=== PATIENT | male | born 1955 | race Caucasian/White ===

== ENCOUNTER 2022-01-22 20:18 | Emergency (ER) | payer MEDICAID, SELFPAY ==
[2022-01-22 20:23] VITALS: BP 157/74; PULSE 95; RESP 20; TEMP 35.8; O2SAT 99; BMI 24.4
--- NOTE | 2022-01-22 21:02 | ED.NAVMDI ---
HPI - Nausea/Vomiting/Diarrhea General Chief complaint: Nausea/Vomiting Stated complaint: Vomiting Time Seen by Provider: 01/22/22 20:44 Source: patient, family and RN notes reviewed Mode of arrival: ambulatory Limitations: no limitations History of Present Illness HPI Narrative: 66-year-old man presenting with his brother with complaint of vomiting for the most part of the last 3 days. Says he can not even keep down a cup of water. Has also been trying Gatorade. Does have an underlying history of GERD and has been recently changed on his proton pump inhibitor to 1 that worked a little bit better. He has not had any fever. Does not note any hematemesis. No abdominal pain per se. Remote history of epilepsy with partial temporal lobectomy resulting in marked improvement in his symptoms. He also notes history of neuropathy going on for a few years at various pressure points throughout his body particularly his left hip. He asked me to investigate his right upper chest as well and his left mid back. He has also been diagnosed with diabetes 4 year more. This is type 2. Sounds like takes metformin and glimepiride. Does not describe any rashes. Does say is not particularly thirsty. She also makes mention of a history of near syncope and lightheadedness when extending his neck looking up. This has been going on for years and has been evaluated including MRI. Later reveals that he often vomits in the mornings Related Data Home Medications Medication Instructions Recorded Confirmed atorvastatin 20 mg tablet 20 mg PO DAILY 01/22/22 01/22/22 glimepiride 2 mg tablet (Amaryl) 2 mg PO QAM 01/22/22 01/22/22 metformin 1,000 mg tablet 1,000 mg PO BIDWMEAL 01/22/22 01/22/22 pantoprazole 40 mg tablet,delayed 40 mg PO DAILY 01/22/22 01/22/22 release tamsulosin 0.4 mg capsule (Flomax) 0.4 mg PO DAILY 01/22/22 01/22/22 Allergies Allergy/AdvReac Type Severity Reaction Status Date / Time No Known Drug Allergies Allergy Verified 01/22/22 20:29 Review of Systems Status of ROS: Reports: 10 or more systems reviewed and unremarkable except as noted in History and below PFSH PFSH Social History Smoking Status: Never smoker Second hand tobacco smoke exposure: No How often do you have a drink containing alcohol: never AUDIT-C Alcohol total score: 0 Non-prescribed substance use: denies use Exam Narrative: Exam Narrative: Slim. Calm. Speaking easily breathing easily. Not tachypneic nonlabored Looks older than stated age. Skin is warm and dry. Diffusely thickened toenails. There is a bandage over his left great toe. He has no lower extremity edema. Well perfused otherwise peripherally. Longer fingernails with dark residue underneath. He speaks easily, methodically. Cranial nerves 2-12 intact GCS of 15. Smell of ketones when I get closer. Cardiovascular is elevated rate no MR Dillard appreciated. Lungs are clear Oropharynx actually moist. Neck is supple without lymphadenopathy. Back nontender other than he indicates an area where there is large open comedone on the left midback an area of tenderness. Chest also area of tenderness in the right upper chest with feel more prominent ribs. There is some yellowed or seborrheic skin scattered over this area as well. Abdomen normoactive bowel sounds is flat soft and nontender. Const: Vital Signs, click to edit/add: Vital Signs - 24 hr 01/22/22 20:23 Temperature 96.5 F L Pulse Rate [Left P ulse Oximeter] 95 Respiratory Rate 20 Blood Pressure [Ri ght Upper Arm] 157/74 H Pulse Oximetry 99 Oxygen Delivery Me thod Room Air Documenting provider has reviewed patient's vital signs: yes Course Reevaluation(s) Reevaluation #1: Ordered another L of fluids in the form of lactated Ringer's. Around this time I also reassessed. Noted himself to be quite improved. Nausea appears to be gone. He is surprised that his blood sugar is good is it is. He did however note that when he got here his vision was pretty good but now across the room is having trouble reading the signs. I believe he said his left eye is better than his right. Does have known cataracts. Is being contemplated for removal. He also reports a history of diabetic retinopathy. He is not describing any pain. He had also noted pain under his neuropathic flare pains around a large open comedone in the left mid back. I did offer removal of this. Using forceps was able to extract without significant difficulty. Was is presently tender in spite of no erythema around it. Bacitracin and Band-Aid were placed. Will reassess for degree of discomfort remaining. Mr. Reed was also requesting evaluation of his right great toe. Some days ago had stubbed it and avulsed the entire nail. He noted it had been quite a bloody mess. Head addressed here with a Band-Aid over top of that gauze. Over surprising to him after injury was that it did not hurt. I note his report of an ascending neuropathy over time. Is also wondering whether or not that could be contributing to some abdominal pains. I did discuss potential of gastroparesis as a neuropathic presentation. In any case evaluation of the right great toe shows it to be well healing without inflammatory changes. Fully avulsed nail. He reports that that nail in particular was not actually thickened. Reevaluation #2: Still with a little bit of blurry vision. He has his reader is on [place] when he acknowledges only takes them off it is harder to visualize at a distance. Removing them says he is still blurry. Quick funduscopic exam is difficult; I would say not particularly helpful. He was able to find prior creatinine which was noted to be 0.89 in the setting of a blood sugar of about 390 -- essentially doubled today. Pending urine collection. Reevaluation #3: UA with 2+ ketones. Overall improved. Tolerating oral. Vital Signs Vital signs: Initial Vital Signs Temperature 96.5 F L 01/22/22 20:23 Temperature Source Temporal Artery Scan 01/22/22 20:23 Pulse Rate 95 01/22/22 20:23 Respiratory Rate 20 01/22/22 20:23 Blood Pressure 157/74 H 01/22/22 20:23 Blood Pressure Mean 101 01/22/22 20:23 Blood Pressure Position Supine 01/22/22 20:23 Pulse Oximetry 99 01/22/22 20:23 Oxygen Delivery Method 01/22/22 20:23 Vital Signs Temperature 96.5 F L 01/22/22 20:23 Pulse Rate 95 01/22/22 20:23 Respiratory Rate 20 01/22/22 20:23 Blood Pressure 157/74 H 01/22/22 20:23 Pulse Oximetry 99 01/22/22 20:23 Oxygen Delivery Method 01/22/22 20:23 Temperature 96.5 F L 01/22/22 20:23 Pulse Rate 79 01/22/22 23:00 Respiratory Rate 11 L 01/22/22 23:00 Blood Pressure 192/91 H 01/22/22 23:00 Pulse Oximetry 96 01/22/22 23:00 Oxygen Delivery Method 01/22/22 20:23 MDM - Nausea/Vomiting/Diarrhea Medical Records Attestation: I reviewed the patient's medical records. Lab Data Attestation: I reviewed the patient's lab results. Labs: Lab Results 01/22/22 01/22/22 01/22/22 Range/Units 21:22 21:22 21:22 WBC 7.60 (4.50-11.00) K/uL RBC 4.06 L (4.30-5.90) m/uL Hgb 11.6 L (13.5-17.5) gm/dL Hct 33.9 L (37.0-53.0) % MCV 84 (80-100) fL MCH 29 (26-34) pg MCHC 34 (32-36) gm/dL RDW Coeff of Meghann 12.7 (11.5-15.5) % Plt Count 322 (140-440) K/uL Neut % (Auto) 71.0 (42.0-72.0) % Lymph % (Auto) 20.0 (20-44) % Yell % (Auto) 8.0 (0.0-11.0) % Eos % (Auto) 0.4 (0.0-7.0) % Baso % (Auto) 0.5 (0.0-3.0) % Neut # (Auto) 5.39 (1.7-7.0) K/uL Lymph # (Auto) 1.52 (0.90-2.90) K/uL Yell # (Auto) 0.60 (0.00-0.90) K/UL Eos # (Auto) 0.03 (0.00-0.50) K/uL Baso # (Auto) 0.04 (0.00-0.30) K/uL Abs Immat Gran (auto) 0.01 (0.00-0.30) K/uL Sodium 142 (135-149) mmol/L Potassium 4.3 (3.6-5.1) mmol/L Chloride 102 (96-114) mmol/L Carbon Dioxide 23 (20-32) mmol/L BUN 39 H (7-30) mg/dL Creatinine 1.9 H (0.5-1.5) mg/dL Estimated Creat Clear 43.11 Estimated GFR 39 ml/min Glucose 149 H (60-115) mg/dL Venous Lactic Acid (Serial Order) Calcium 9.5 (8.4-10.6) mg/dL Magnesium 1.5 (1.5-2.6) mg/dL Total Bilirubin 0.7 (0.1-1.5) mg/dL AST 21 (12-35) U/L ALT 22 (4-50) U/L Alkaline Phosphatase 68 (40-150) U/L C-Reactive Protein < 0.5 L (0.5-1.0) mg/dL NT-Pro-B Natriuret Pep 284 H (0-125) PG/mL Total Protein 8.1 (6.0-8.3) g/dL Albumin 4.9 (3.3-5.0) g/dL Lipase 62 (23-300) U/L Urine Color (Yellow) Urine Appearance (Clear) Urine pH (5.0-8.5) Ur Specific [place] (1.000-1.030) Urine Protein (Negative) Urine Glucose (UA) (Negative) Urine Ketones (Negative) Urine Blood (Negative) Urine Nitrite (Negative) Urine Bilirubin (Negative) Urine Urobilinogen (0.2-1.0) Ur Leukocyte Esterase (Negative) Urine RBC (0-2) Urine WBC (0-5) Ur Squamous Epith Cells (None-Few) Triple Phos Crystals (None) Urine Bacteria (None) Urine Mucus (None) SARS-CoV-2 (PCR) Negative SARS-CoV-2 (Negative) 01/22/22 01/22/22 Range/Units 21:22 23:20 WBC (4.50-11.00) K/uL RBC (4.30-5.90) m/uL Hgb (13.5-17.5) gm/dL Hct (37.0-53.0) % MCV (80-100) fL MCH (26-34) pg MCHC (32-36) gm/dL RDW Coeff of Meghann (11.5-15.5) % Plt Count (140-440) K/uL Neut % (Auto) (42.0-72.0) % Lymph % (Auto) (20-44) % Yell % (Auto) (0.0-11.0) % Eos % (Auto) (0.0-7.0) % Baso % (Auto) (0.0-3.0) % Neut # (Auto) (1.7-7.0) K/uL Lymph # (Auto) (0.90-2.90) K/uL Yell # (Auto) (0.00-0.90) K/UL Eos # (Auto) (0.00-0.50) K/uL Baso # (Auto) (0.00-0.30) K/uL Abs Immat Gran (auto) (0.00-0.30) K/uL Sodium (135-149) mmol/L Potassium (3.6-5.1) mmol/L Chloride (96-114) mmol/L Carbon Dioxide (20-32) mmol/L BUN (7-30) mg/dL Creatinine (0.5-1.5) mg/dL Estimated Creat Clear Estimated GFR ml/min Glucose (60-115) mg/dL Venous Lactic Acid (Serial Order) Calcium (8.4-10.6) mg/dL Magnesium (1.5-2.6) mg/dL Total Bilirubin (0.1-1.5) mg/dL AST (12-35) U/L ALT (4-50) U/L Alkaline Phosphatase (40-150) U/L C-Reactive Protein (0.5-1.0) mg/dL NT-Pro-B Natriuret Pep (0-125) PG/mL Total Protein (6.0-8.3) g/dL Albumin (3.3-5.0) g/dL Lipase (23-300) U/L Urine Color Yellow (Yellow) Urine Appearance Clear (Clear) Urine pH 5.5 (5.0-8.5) Ur Specific [place] 1.025 (1.000-1.030) Urine Protein 1+ A (Negative) Urine Glucose (UA) Negative (Negative) Urine Ketones 2+ A (Negative) Urine Blood Negative (Negative) Urine Nitrite Negative (Negative) Urine Bilirubin 1+ A (Negative) Urine Urobilinogen 0.2 (0.2-1.0) Ur Leukocyte Esterase Negative (Negative) Urine RBC 0-2 (0-2) Urine WBC 2-5 (0-5) Ur Squamous Epith Cells Moderate A (None-Few) Triple Phos Crystals Moderate A (None) Urine Bacteria Moderate A (None) Urine Mucus Few A (None) SARS-CoV-2 (PCR) (Negative) Discharge Plan Discharge Clinical Impression: Gastritis, Ketosis, Dehydration Patient Disposition: Home w/ Parent or Adult Condition: Improved Additional Instructions: Continue to focus on hydration. I do think straight water on an empty stomach, vomited or otherwise, can be a little harsh. I would follow up to recheck your labs early next week. If vision is still unusually blurry tomorrow, please follow-up with your eye clinic for evaluation. Otherwise be seen sooner for any loss of vision. Okay to return for intractable vomiting, increasing weakness, associated fever, increasing abdominal pain. Zofran from [facility]. Prescriptions: No Action pantoprazole 40 mg tablet,delayed release (DR/EC) 40 mg PO DAILY atorvastatin 20 mg tablet 20 mg PO DAILY glimepiride [Amaryl] 2 mg tablet 2 mg PO QAM Rx Instructions: administer with breakfast tamsulosin [Flomax] 0.4 mg capsule 0.4 mg PO DAILY metformin 1,000 mg tablet 1,000 mg PO BIDWMEAL Follow Up/Referrals: Provider,Not a Local [Primary Care Provider] - Stand Alone Forms: [employer] Info Instructions
[2022-01-22] MEDS: ONDANSETRON 2 MG/ML inj 4 MG IVP (21:19)
[2022-01-22] MEDS: 0.9 % SODIUM CHLORIDE 1000 ml 1,000 ML IV (21:20)
[2022-01-22 21:32] LABS: Lactate Sepsis w/Reflex* 2.2 mmol/L (0.5-1.9)
[2022-01-22 21:34] LABS: Basophils Absolute Auto 0.04 K/uL (0.00-0.30); Basophils Percent Auto 0.5 % (0.0-3.0); Eosinophils Absolute Auto 0.03 K/uL (0.00-0.50); Eosinophils Percent Auto 0.4 % (0.0-7.0); Hematocrit 33.9 % (37.0-53.0); Hemoglobin* 11.6 gm/dL (13.5-17.5); Immature Granulocytes Abs Auto 0.01 K/uL (0.00-0.30); Lymphocytes Absolute Auto 1.52 K/uL (0.90-2.90); Mean Corpuscular HGB Conc 34 gm/dL (32-36); Mean Corpuscular Hemoglobin 29 pg (26-34); Mean Corpuscular Volume 84 fL (80-100); Neutrophils Absolute Auto 5.39 K/uL (1.7-7.0); Platelet Count* 322 K/uL (140-440); RDW Coefficient of Variation % 12.7 % (11.5-15.5); Red Blood Count 4.06 m/uL (4.30-5.90)
[2022-01-22 21:43] LABS: Slide Review Reflex No
[2022-01-22 21:51] LABS: Albumin* 4.9 g/dL (3.3-5.0); Chloride* 102 mmol/L (96-114)
[2022-01-22 21:52] LABS: Potassium* 4.3 mmol/L (3.6-5.1); Sodium* 142 mmol/L (135-149)
[2022-01-22 21:54] LABS: Bilirubin Total* 0.7 mg/dL (0.1-1.5); Creatinine* 1.9 mg/dL (0.5-1.5); Est. Creatinine Clearance* 43.11; Estimated Glomerular Filt Rate 39 ml/min
[2022-01-22 21:55] LABS: Alanine Aminotransferase* 22 U/L (4-50); Alkaline Phosphatase* 68 U/L (40-150); Aspartate Amino Transferase* 21 U/L (12-35); Blood Urea Nitrogen* 39 mg/dL (7-30); Carbon Dioxide* 23 mmol/L (20-32); Glucose* 149 mg/dL (60-115); Lipase* 62 U/L (23-300); Total Protein* 8.1 g/dL (6.0-8.3)
[2022-01-22 21:56] LABS: Calcium* 9.5 mg/dL (8.4-10.6); Magnesium* 1.5 mg/dL (1.5-2.6)
[2022-01-22 21:58] LABS: C Reactive Protein* < 0.5 mg/dL (0.5-1.0)
[2022-01-22 22:03] LABS: NT Pro B Type NatriureticPept* 284 PG/mL (0-125)
[2022-01-22 22:10] VITALS: BP 168/98; PULSE 81; RESP 18; O2SAT 99
--- NOTE | 2022-01-22 22:18 | PC.NURSE ---
Patient wanting to try some diet sprite and saltine crackers after tolerating ice chips well. When auto service writer was in room patient also noted some vision changes stating he is unable to now read the signs across the room from him when he could read them when he got here. Dr. Calero is notified of these vision changes.
--- NOTE | 2022-01-22 22:24 | PC.NURSE ---
Patient aware that we need a urine sample. Second liter of fluids started. Patient thinks he will be able to give a sample after receiving more fluids.
[2022-01-22] MEDS: LACTATED RINGERS 1000 ML IV (22:25)
[2022-01-22 22:42] LABS: SARS PCR* Negative SARS-CoV-2 (Negative)
[2022-01-22 23:00] VITALS: BP 192/91; PULSE 79; RESP 11; O2SAT 96
[2022-01-22 23:32] LABS: Lactate Sepsis 2 Hour 3.2 mmol/L (0.5-1.9)
[2022-01-22 23:35] LABS: Appearance Urine Clear (Clear); Bilirubin Urine 1+ (Negative); Blood Urine Negative (Negative); Color Urine Yellow (Yellow); Glucose Urine Negative (Negative); Ketones Urine 2+ (Negative); Leukocyte Esterase Urine Negative (Negative); Nitrite Urine Negative (Negative); Protein Urine 1+ (Negative); Specific Gravity Urine 1.025 (1.000-1.030); Urobilinogen Urine 0.2 (0.2-1.0); pH Urine 5.5 (5.0-8.5)
[2022-01-23 00:29] LABS: RBC Urine 0-2 (0-2)
[2022-01-23 00:30] LABS: Bacteria Urine Moderate; Mucus Urine Few; Squamous Epithelial Cell Urine Moderate (None-Few); Triple Phosphate Crystal Urine Moderate
== END 2022-01-23 00:35 | disposition home or self-care (01) ==
PROVIDERS: Emergency Provider Family Medicine
DX: K29.70 Gastritis, unspecified, without bleeding (principal); E88.89 Other specified metabolic disorders; E86.0 Dehydration
CPT/HCPCS: 36415; 80053; 81003; 81015; 83690; 83735; 83880; 85025; 86140; 87040; 87086; 87635; 96374; 99284; J2405; J7030; J7120